=== PATIENT | female | born 1970 | race Caucasian/White ===

== ENCOUNTER 2018-11-27 11:58 | Emergency (ER) | payer OTHER ==
[~2018-11-27] VITALS: Ht 177.8 cm; Wt 85.0 kg
[~2018-11-27 11:58] MED LIST: BUTA-177 PO; FERR325T18 PO; Iron PO; NITR100C56 PO; OMEP20CA9 PO; ONDA4TAB7 PO; OXYC-302 PO; SULF1TAB24 PO
--- NOTE | 2018-11-27 12:58 | NUR ---
Pt to 27 from lobby
[2018-11-27 13:03] LABS: BASOPHILS # (AUTO) 0.02 x10^3/uL (0-0.1); BASOPHILS % (AUTO) 0 % (0-1); EOSINOPHILS # (AUTO) 0.01 x10^3/uL (0-0.4); EOSINOPHILS % (AUTO) 0 % (1-7); LYMPHOCYTES # (AUTO) 0.91 x10^3/uL (1-3.4); LYMPHOCYTES % (AUTO) 11 % (22-44); MD NO; MEAN CORPUSCULAR HEMOGLOBIN 30.6 pg (27.0-34.8); MEAN CORPUSCULAR HGB CONC 34.7 g/dL (32.4-35.8); MEAN CORPUSCULAR VOLUME 88.3 fL (80-100); MEAN PLATELET VOLUME 7.3 fL (7.4-10.4); MONOCYTES # (AUTO) 0.36 x10^3/uL (0.2-0.8); MONOCYTES % (AUTO) 4 % (2-9); NEUTROPHILS # (AUTO) 7.36 x10^3/uL (1.8-6.8); NEUTROPHILS % (AUTO) 85 % (42-75); PLATELET COUNT 291 x10^3/uL (130-400); RED BLOOD COUNT 4.77 x10^6/uL (3.82-5.3); RED CELL DISTRIBUTION WIDTH 13.1 % (9.6-15.2)
--- NOTE | 2018-11-27 13:10 | NUR ---
pt in room. family at bedside. awaiting further orders at this time.
[2018-11-27 13:13] LABS: ALANINE AMINOTRANSFERASE 27 U/L (12-78); ALBUMIN 4.3 g/dL (3.4-5.0); ANION GAP 6 mmol/L (5-15); CALCIUM 8.9 mg/dL (8.5-10.1); CHLORIDE 109 mmol/L (98-107); CREATININE 0.67 mg/dL (0.55-1.02)
[2018-11-27 13:17] LABS: ALKALINE PHOSPHATASE 54 U/L (45-117); BILIRUBIN,TOTAL 0.5 mg/dL (0.2-1.0); TOTAL PROTEIN 7.5 g/dL (6.4-8.2); TROPONIN I < 0.015 ng/mL (0.000-0.045)
[2018-11-27] MEDS ORDERED: MECLIZINE CHEWABLE 25 MG TAB ONE (13:48)
[2018-11-27] MEDS ORDERED: MECLIZINE CHEWABLE 25 MG TAB PO ONE (14:00)
--- NOTE | 2018-11-27 14:21 | NUR ---
pt back from ct
[2018-11-27] MEDS ORDERED: DIAZEPAM 5 MG TABLET PO ONE (14:30)
[2018-11-27] MEDS ORDERED: DIAZEPAM 5 MG TABLET ONE (14:57)
--- NOTE | 2018-11-27 15:07 | NUR ---
REPORT RC'VD FROM [facility]. PT RESTING IN [facility], JUST RECEIVED MEDS ORDERED, UNDERSTANDS POC. AWAKENS EASILY, A&OX4, DENIES NEEDS AT THIS TIME.
--- NOTE | 2018-11-27 16:46 | NUR ---
PT HAS BEEN SLEEPING SINCE [facility] ADMINISTRATION. AWAKENED EASILY, AMBULATED TO BR INDEPENDENTLY.
[2018-11-27 17:22] VITALS: BP 128/75
--- NOTE | 2018-11-27 17:23 | NUR ---
D/C INSTRUCTIONS, MEDS, & F/U APPT RV'WD WITH PT. PT AMBULATED OUT OF ED WITHOUT DIFFICULTY, STATES THAT FAMILY WILL PICK HER UP.
== END 2018-11-27 17:25 | disposition home or self-care (01) ==
LOC: ED 14:32
DX: R42 Dizziness and giddiness (principal); R51 Headache; Z90.710 Acquired absence of both cervix and uterus
CPT/HCPCS: 36415; 70450; 71046; 80053; 84484; 85025; 93005; 99284